=== PATIENT | female | born 1995 | race Caucasian/White ===

== ENCOUNTER 2020-07-30 09:30 | Emergency (ER) | payer OTHER ==
[2020-07-30 09:48] VITALS: BP 112/68; PULSE 85; TEMP 98; BMI 17.7
== END 2020-07-30 10:08 | disposition home or self-care (01) ==
LOC: FER 09:30
DX: S92.302A Fracture of unspecified metatarsal bone(s), left foot, initial encounter for closed fracture (principal)
CPT/HCPCS: 73630-TC-LT; 99284-25